=== PATIENT | female | born 1940 | race Caucasian/White ===

== ENCOUNTER 2017-09-11 19:28 | Inpatient (IN) | payer MEDICARE, OTHER ==
[2017-09-11 20:52] LABS: ADD MAN DIFF? NO
[2017-09-11] MEDS: SODIUM CHLORIDE 0.9% 1L BAG IV* (20:53)
[2017-09-11] MEDS: CEFEPIME 2GM/50 ML (PMX) 50 ML IVPB (20:54)
[2017-09-11] MEDS: ACETAMINOPHEN 650 MG SUPP PR (20:54)
[2017-09-11 20:55] LABS: BASOPHIL # 0.1 10^3/ul (0.0-0.1); BASOPHILS % 0.3 % (0.0-2.0); EOSINOPHILS # 0.1 10^3/ul (0.0-0.5); EOSINOPHILS % 0.4 % (0.0-7.0); HEMATOCRIT 39.8 % (37.0-47.0); HEMOGLOBIN 11.8 g/dl (12.0-16.0); LYMPHOCYTES # 1.5 10^3/ul (0.8-2.9); LYMPHOCYTES % 7.3 % (15.0-51.0); MEAN CORPUSCULAR HEMOGLOBIN 28.6 pg (29.0-33.0); MEAN CORPUSCULAR HGB CONC 29.6 g/dl (32.0-37.0); MEAN CORPUSCULAR VOLUME 96.6 fl (82.0-101.0); MEAN PLATELET VOLUME 8.8 fl (7.4-10.4); MONOCYTE # 0.9 10^3/ul (0.3-0.9); MONOCYTES % 4.4 % (0.0-11.0); NEUTROPHIL # 17.5 10^3/ul (1.6-7.5); NEUTROPHILS % 86.7 % (39.0-77.0); PLATELET COUNT 340 10^3/UL (140-415); RED BLOOD COUNT 4.12 10^6/ul (4.20-5.40); RED CELL DISTRIBUTION WIDTH 13.2 % (11.5-14.5)
[2017-09-11 20:55] LABS: WHITE BLOOD COUNT 20.2 10^3/ul (4.8-10.8)
[2017-09-11 21:08] LABS: ADD UMIC YES; UR ASCORBIC ACID 40 mg/dL (NEGATIVE); UR BACTERIA MODERATE /HPF (NONE SEEN); UR BILIRUBIN (Dip) NEGATIVE (NEGATIVE); UR BLOOD (Dip) NEGATIVE (NEGATIVE); UR CLARITY SLIGHTLY CLOUDY (CLEAR); UR COLOR YELLOW (YELLOW); UR GLUCOSE (Dip) NEGATIVE (NEGATIVE); UR KETONES (Dip) NEGATIVE (NEGATIVE); UR LEUKOCYTE ESTERASE (Dip) NEGATIVE Leu/ul (NEGATIVE); UR MUCUS FEW /HPF (NONE SEEN); UR NITRITE (Dip) NEGATIVE (NEGATIVE); UR RBC 8 /HPF (0-5); UR SPECIFIC GRAVITY (Dip) 1.021 (1.003-1.030); UR TOTAL PROTEIN (Dip) 1+ mg/dl (NEGATIVE); UR UROBILINOGEN (Dip) NEGATIVE (NEGATIVE); UR WBC 3 /HPF (0-5)
[2017-09-11 21:13] LABS: LACTIC ACID 0.9 mmol/L (0.5-2.0)
[2017-09-11 21:13] LABS: INR 0.95; PROTIME 12.8 Sec (11.9-14.9)
[2017-09-11 21:14] LABS: PARTIAL THROMBOPLASTIN TIME 27.5 Sec (25.0-35.0)
[2017-09-11 21:15] LABS: ALANINE AMINOTRANSFERASE 20 IU/L (13-69); ALBUMIN 3.9 g/dl (3.3-4.9); ALKALINE PHOSPHATASE 102 IU/L (42-121); ANION GAP 13 (8-16); ASPARTATE AMINO TRANSFERASE 20 IU/L (15-46); BLOOD UREA NITROGEN 14 mg/dl (7-20); CALCIUM 8.6 mg/dl (8.4-10.2); CARBON DIOXIDE 32 mmol/L (21-31); CHLORIDE 106 mmol/L (97-110); CREATININE 0.66 mg/dl (0.44-1.00); GLUCOSE 189 mg/dl (70-220); POTASSIUM 4.1 mmol/L (3.5-5.1); SODIUM 147 mmol/L (135-144); TOTAL PROTEIN 8.2 g/dl (6.1-8.1)
[2017-09-11] MEDS: VANCOMYCIN 1 GM (PMX) 250 ML IVPB (21:23)
[2017-09-11 21:34] LABS: TROPONIN-I < 0.012 ng/ml (0.000-0.120)
[2017-09-11] MEDS: NALOXONE 2 MG SYG IV (21:59)
[2017-09-11] MEDS ORDERED: ONDANSETRON 4 MG INJ IV (22:00)
[2017-09-11] MEDS ORDERED: ACETAMINOPHEN 325 MG TAB PO (22:00)
[2017-09-11 23:01] LABS: LACTIC ACID 1.3 mmol/L (0.5-2.0)
[2017-09-12] MEDS: ACETAMINOPHEN 650 MG SUPP PR ×2 (04:03→10:28)
[2017-09-12] MEDS: SOD CHLORIDE 0.9% 1,000 ML IV ×3 (04:15→18:51)
[2017-09-12] MEDS ORDERED: ONDANSETRON 4 MG INJ IV (05:30)
[2017-09-12] MEDS ORDERED: NACL 0.9% 3 ML SYG IV (05:30)
[2017-09-12] MEDS ORDERED: ALPRAZOLAM 0.25 MG TAB PO (05:30)
[2017-09-12] MEDS ORDERED: HYDROCODONE/APAP (5/325) TAB PO (05:30)
[2017-09-12] MEDS: OLOPATADINE 0.2% (ONCE A DAY) OPHTH DROP 2.5 ML BOTH EYES ×2 (05:30→08:06)
[2017-09-12] MEDS ORDERED: morphine 2 MG INJ IV (05:30)
[2017-09-12] MEDS: BACLOFEN 10 MG TAB PO ×2 (05:30→11:30)
[2017-09-12] MEDS: PANTOPRAZOLE (EC) 40 MG TAB PO ×2 (06:00→18:00)
[2017-09-12 06:22] LABS: ADD MAN DIFF? NO
[2017-09-12 06:23] LABS: WHITE BLOOD COUNT 24.1 10^3/ul (4.8-10.8)
[2017-09-12 06:23] LABS: ABNORMAL IP MESSAGE 1; BASOPHILS % 0.2 % (0.0-2.0); EOSINOPHILS % 0.1 % (0.0-7.0); HEMATOCRIT 36.4 % (37.0-47.0); HEMOGLOBIN 10.7 g/dl (12.0-16.0); LYMPHOCYTES # 1.4 10^3/ul (0.8-2.9); LYMPHOCYTES % 5.7 % (15.0-51.0); MEAN CORPUSCULAR HEMOGLOBIN 28.6 pg (29.0-33.0); MEAN CORPUSCULAR HGB CONC 29.4 g/dl (32.0-37.0); MEAN CORPUSCULAR VOLUME 97.3 fl (82.0-101.0); MEAN PLATELET VOLUME 8.9 fl (7.4-10.4); MONOCYTE # 0.9 10^3/ul (0.3-0.9); MONOCYTES % 3.7 % (0.0-11.0); NEUTROPHIL # 21.5 10^3/ul (1.6-7.5); NEUTROPHILS % 89.3 % (39.0-77.0); PLATELET COUNT 296 10^3/UL (140-415); RED BLOOD COUNT 3.74 10^6/ul (4.20-5.40); RED CELL DISTRIBUTION WIDTH 13.2 % (11.5-14.5)
[2017-09-12 06:29] LABS: POSITIVE DIFF @See below
[2017-09-12 06:52] LABS: LACTIC ACID 1.2 mmol/L (0.5-2.0)
[2017-09-12 07:00] LABS: ALANINE AMINOTRANSFERASE 19 IU/L (13-69); ALBUMIN 3.2 g/dl (3.3-4.9); ALBUMIN/GLOBULIN RATIO 0.94; ALKALINE PHOSPHATASE 88 IU/L (42-121); ANION GAP 9 (8-16); ASPARTATE AMINO TRANSFERASE 12 IU/L (15-46); BLOOD UREA NITROGEN 12 mg/dl (7-20); CALCIUM 8.2 mg/dl (8.4-10.2); CARBON DIOXIDE 31 mmol/L (21-31); CHLORIDE 111 mmol/L (97-110); GLUCOSE 155 mg/dl (70-220); SODIUM 147 mmol/L (135-144); TOTAL PROTEIN 6.6 g/dl (6.1-8.1)
[2017-09-12] MEDS: OCULAR LUBRICANT 3.5 GM OPH OINT BOTH EYES ×4 (08:00→23:00)
[2017-09-12] MEDS: ASPIRIN (EC) 81 MG TAB PO (08:29)
[2017-09-12] MEDS: SENNA TAB PO ×2 (08:30→21:00)
[2017-09-12] MEDS: PYRIDOXINE 50 MG TAB PO (08:30)
[2017-09-12] MEDS: GABAPENTIN 300 MG CAP PO ×2 (08:30→21:00)
[2017-09-12] MEDS: POLYETHYLENE GLYCOL 17 GM PACKET PO (08:30)
[2017-09-12] MEDS: AMLODIPINE 5 MG TAB PO (08:30)
[2017-09-12] MEDS: PRAMIPEXOLE 0.25 MG TAB PO ×2 (08:30→21:00)
[2017-09-12] MEDS ORDERED: NON-FORMULARY/PATIENT OWN MED (Naloxegol Oxalate (Movantik) 25 MG) PO (09:00)
[2017-09-12] MEDS: HEPARIN 5,000 UNIT/0.5 ML VIAL SC ×2 (10:02→21:19)
[2017-09-12] MEDS: MEROPENEM 500MG/50 ML (PMX) 50 ML IVPB ×2 (10:28→21:18)
[2017-09-12] MEDS: ALBUTEROL/IPRATROPIUM (NEB) 3 ML AMP HHN (14:31)
[2017-09-12 14:43] LABS: AADO2 Arterial 303.4 mmHg (7.0-24.0); Allen Test ACCEPTAB; Arterial Blood Gas Oxygen Sat 90.8 mmHG (95.0-100.0); Arterial COHb 0.4 % (0.0-3.0); Arterial Fraction of Oxyhgb 90.3 % (93.0-99.0); Arterial HCO3 27.6 mmol/L (22.0-26.0); Arterial MetHb 0.1 % (0.0-1.5); Arterial Total Hemglobin 11.9 g/dl (12.0-18.0); MODE MASK - SIMPLE; Site Right Radial
[2017-09-12] MEDS: [UNRECOGNIZED DRUG - OTHER] XX (16:00)
[2017-09-12] MEDS: OLOPATADINE 0.1% 5 ML OPH BOTH EYES ×2 (18:51→21:18)
[2017-09-12 20:03] LABS: AADO2 Arterial 177.3 mmHg (7.0-24.0); Arterial Base Excess 0.1 mmol/L (-3.0-3); Arterial Blood Gas Oxygen Sat 94.3 mmHG (95.0-100.0); Arterial COHb 0.5 % (0.0-3.0); Arterial Fraction of Oxyhgb 93.7 % (93.0-99.0); Arterial HCO3 28.3 mmol/L (22.0-26.0); Arterial MetHb 0.1 % (0.0-1.5); Arterial pCO2 63.9 mmhg (35-45); Blood Gas IEPAP 18 /8; MODE BCPAP; Site Right Brachial
[2017-09-12] MEDS ORDERED: NON-FORMULARY/PATIENT OWN MED (Melatonin 10 MG) PO (21:00)
[2017-09-12] MEDS: traZODone 50 MG TAB PO (21:00)
[2017-09-13] MEDS: PANTOPRAZOLE (EC) 40 MG TAB PO ×2 (05:57→17:43)
[2017-09-13] MEDS: [UNRECOGNIZED DRUG - OTHER] XX ×3 (08:00→16:00)
[2017-09-13] MEDS: OCULAR LUBRICANT 3.5 GM OPH OINT BOTH EYES ×6 (08:00→20:37)
[2017-09-13 09:10] LABS: WHITE BLOOD COUNT 33.8 10^3/ul (4.8-10.8)
[2017-09-13 09:10] LABS: ABNORMAL IP MESSAGE 1; HEMATOCRIT 32.6 % (37.0-47.0); HEMOGLOBIN 9.8 g/dl (12.0-16.0); MEAN CORPUSCULAR HEMOGLOBIN 28.7 pg (29.0-33.0); MEAN CORPUSCULAR HGB CONC 30.1 g/dl (32.0-37.0); MEAN CORPUSCULAR VOLUME 95.6 fl (82.0-101.0); MEAN PLATELET VOLUME 9.5 fl (7.4-10.4); PLATELET COUNT 280 10^3/UL (140-415); RED BLOOD COUNT 3.41 10^6/ul (4.20-5.40); RED CELL DISTRIBUTION WIDTH 13.6 % (11.5-14.5)
[2017-09-13 09:15] LABS: POSITIVE DIFF @See below
[2017-09-13 09:16] LABS: ADD MAN DIFF? YES
[2017-09-13] MEDS: POLYETHYLENE GLYCOL 17 GM PACKET PO (09:23)
[2017-09-13 09:24] LABS: PHOSPHORUS 1.9 mg/dl (2.5-4.9)
[2017-09-13] MEDS: PYRIDOXINE 50 MG TAB PO (09:25)
[2017-09-13] MEDS: AMLODIPINE 5 MG TAB PO (09:25)
[2017-09-13] MEDS: PRAMIPEXOLE 0.25 MG TAB PO ×2 (09:25→20:38)
[2017-09-13] MEDS: ASPIRIN (EC) 81 MG TAB PO (09:25)
[2017-09-13] MEDS: GABAPENTIN 300 MG CAP PO ×2 (09:26→20:38)
[2017-09-13] MEDS: SENNA TAB PO ×2 (09:26→20:37)
[2017-09-13] MEDS: HEPARIN 5,000 UNIT/0.5 ML VIAL SC ×2 (09:27→20:41)
[2017-09-13] MEDS: OLOPATADINE 0.1% 5 ML OPH BOTH EYES ×2 (09:27→20:42)
[2017-09-13 09:28] LABS: ALANINE AMINOTRANSFERASE 16 IU/L (13-69); ALBUMIN 2.8 g/dl (3.3-4.9); ALBUMIN/GLOBULIN RATIO 0.82; ALKALINE PHOSPHATASE 109 IU/L (42-121); ANION GAP 11 (8-16); ASPARTATE AMINO TRANSFERASE 19 IU/L (15-46); BILIRUBIN,INDIRECT 0.1 mg/dl (0-1.1); BILIRUBIN,TOTAL 0.1 mg/dl (0.2-1.3); BLOOD UREA NITROGEN 16 mg/dl (7-20); CALCIUM 8.8 mg/dl (8.4-10.2); CARBON DIOXIDE 29 mmol/L (21-31); CHLORIDE 113 mmol/L (97-110); CREATININE 0.65 mg/dl (0.44-1.00); GLUCOSE 124 mg/dl (70-220); MAGNESIUM 1.9 mg/dl (1.7-2.5); POTASSIUM 3.6 mmol/L (3.5-5.1); SODIUM 149 mmol/L (135-144); TOTAL PROTEIN 6.2 g/dl (6.1-8.1)
[2017-09-13] MEDS: MEROPENEM 500MG/50 ML (PMX) 50 ML IVPB ×2 (09:31→20:36)
[2017-09-13] MEDS: SOD CHLORIDE 0.9% 1,000 ML IV ×2 (09:31→21:23)
[2017-09-13 09:56] LABS: ANISOCYTOSIS 1+ (0-0); BAND NEUTROPHILS #M 9.1 10^3/ul (0.0-0.6); BAND NEUTROPHILS % (M) 27 % (0-4); LYMPHOCYTES #M 1.6 10^3/ul (0.8-2.9); LYMPHOCYTES % (M) 5 % (15-51); MICROCYTOSIS 1+ (0-0); MONOCYTE #M 0.3 10^3/ul (0.3-0.9); MONOCYTES % (M) 1 % (0-11); PLATELET ESTIMATE NORMAL; POLYCHROMASIA 3+ (0-0); SEG NEUT #M 25.7 10^3/ul (1.6-7.5); SEGMENTED NEUTROPHILS (M) % 67 % (39-77)
[2017-09-13] MEDS ORDERED: VANCOMYCIN IV PER PHARMACY XX (14:00)
[2017-09-13] MEDS: IOHEXOL 100 ML (16:03)
[2017-09-13] MEDS: SOD CHLORIDE 0.9% 100 ML (16:03)
[2017-09-13] MEDS: VANCOMYCIN 1.5 GM in SOD CHLORIDE 0.9% 250 ML IVPB (16:28)
[2017-09-13] MEDS: ATORVASTATIN 10 MG TAB PO (20:38)
[2017-09-13] MEDS: traZODone 50 MG TAB PO (20:38)
[2017-09-14] MEDS: OCULAR LUBRICANT 3.5 GM OPH OINT BOTH EYES ×6 (01:35→21:12)
[2017-09-14] MEDS: SOD CHLORIDE 0.9% 1,000 ML IV ×2 (06:01→10:43)
[2017-09-14] MEDS: PANTOPRAZOLE (EC) 40 MG TAB PO ×2 (06:01→17:52)
[2017-09-14] MEDS: [UNRECOGNIZED DRUG - OTHER] XX ×3 (08:00→16:00)
[2017-09-14] MEDS: GABAPENTIN 300 MG CAP PO ×2 (08:34→21:11)
[2017-09-14] MEDS: PRAMIPEXOLE 0.25 MG TAB PO ×2 (08:34→21:11)
[2017-09-14] MEDS: ASPIRIN (EC) 81 MG TAB PO (08:34)
[2017-09-14] MEDS: POLYETHYLENE GLYCOL 17 GM PACKET PO (08:34)
[2017-09-14] MEDS: AMLODIPINE 5 MG TAB PO (08:34)
[2017-09-14] MEDS: SENNA TAB PO ×2 (08:35→21:11)
[2017-09-14] MEDS: PYRIDOXINE 50 MG TAB PO (08:35)
[2017-09-14 08:40] LABS: ADD MAN DIFF? NO
[2017-09-14 08:42] LABS: ABNORMAL IP MESSAGE 1; BASOPHIL # 0.1 10^3/ul (0.0-0.1); BASOPHILS % 0.2 % (0.0-2.0); EOSINOPHILS # 0.2 10^3/ul (0.0-0.5); EOSINOPHILS % 0.8 % (0.0-7.0); HEMATOCRIT 31.5 % (37.0-47.0); HEMOGLOBIN 9.9 g/dl (12.0-16.0); LYMPHOCYTES # 2.1 10^3/ul (0.8-2.9); LYMPHOCYTES % 7.9 % (15.0-51.0); MEAN CORPUSCULAR HEMOGLOBIN 29.1 pg (29.0-33.0); MEAN CORPUSCULAR HGB CONC 31.4 g/dl (32.0-37.0); MEAN CORPUSCULAR VOLUME 92.6 fl (82.0-101.0); MEAN PLATELET VOLUME 9.1 fl (7.4-10.4); MONOCYTE # 0.6 10^3/ul (0.3-0.9); NEUTROPHIL # 23.6 10^3/ul (1.6-7.5); NUCLEATED RED BLOOD CELLS% 0.1 /100WBC (0.0-0.0); PLATELET COUNT 298 10^3/UL (140-415); RED CELL DISTRIBUTION WIDTH 13.2 % (11.5-14.5)
[2017-09-14 08:42] LABS: WHITE BLOOD COUNT 26.9 10^3/ul (4.8-10.8)
[2017-09-14] MEDS: OLOPATADINE 0.1% 5 ML OPH BOTH EYES ×2 (08:45→21:31)
[2017-09-14 08:47] LABS: POSITIVE DIFF @See below
[2017-09-14] MEDS: MEROPENEM 500MG/50 ML (PMX) 50 ML IVPB (08:55)
[2017-09-14] MEDS: HEPARIN 5,000 UNIT/0.5 ML VIAL SC ×2 (08:55→21:21)
[2017-09-14 09:08] LABS: ANION GAP 12 (8-16); BLOOD UREA NITROGEN 11 mg/dl (7-20); CALCIUM 8.4 mg/dl (8.4-10.2); CARBON DIOXIDE 28 mmol/L (21-31); CHLORIDE 109 mmol/L (97-110); CREATININE 0.49 mg/dl (0.44-1.00); GLUCOSE 112 mg/dl (70-220); POTASSIUM 3.2 mmol/L (3.5-5.1); SODIUM 146 mmol/L (135-144)
[2017-09-14] MEDS: PIPER-TAZO 3.375 GM IV (PMX) 100 ML IVPB ×2 (15:58→21:35)
[2017-09-14] MEDS: POTASSIUM CHLORIDE (SR) 20 MEQ TAB PO (16:04)
[2017-09-14] MEDS: VANCOMYCIN 1.25 GM in SOD CHLORIDE 0.9% 250 ML IVPB (17:35)
[2017-09-14] MEDS: ACETAMINOPHEN 325 MG TAB PO (19:59)
[2017-09-14] MEDS: traZODone 50 MG TAB PO (21:11)
[2017-09-14] MEDS: ATORVASTATIN 10 MG TAB PO (21:11)
[2017-09-14] MEDS: POTASSIUM CHLORIDE 100 ML IVPB (23:06)
[2017-09-15] MEDS: SOD CHLORIDE 0.9% 1,000 ML IV ×2 (00:03→13:23)
[2017-09-15] MEDS: OCULAR LUBRICANT 3.5 GM OPH OINT BOTH EYES ×6 (01:50→21:27)
[2017-09-15] MEDS: PANTOPRAZOLE (EC) 40 MG TAB PO ×2 (05:48→17:43)
[2017-09-15] MEDS: PIPER-TAZO 3.375 GM IV (PMX) 100 ML IVPB ×3 (05:48→21:19)
[2017-09-15] MEDS: [UNRECOGNIZED DRUG - OTHER] XX ×3 (07:54→15:43)
[2017-09-15] MEDS: AMLODIPINE 5 MG TAB PO (08:58)
[2017-09-15] MEDS: SENNA TAB PO ×2 (08:58→21:14)
[2017-09-15] MEDS: ASPIRIN (EC) 81 MG TAB PO (08:59)
[2017-09-15] MEDS: PYRIDOXINE 50 MG TAB PO (08:59)
[2017-09-15] MEDS: PRAMIPEXOLE 0.25 MG TAB PO ×2 (08:59→21:14)
[2017-09-15] MEDS: GABAPENTIN 300 MG CAP PO ×2 (09:00→21:14)
[2017-09-15] MEDS: OLOPATADINE 0.1% 5 ML OPH BOTH EYES ×2 (09:01→21:00)
[2017-09-15] MEDS: POLYETHYLENE GLYCOL 17 GM PACKET PO (09:01)
[2017-09-15] MEDS: HEPARIN 5,000 UNIT/0.5 ML VIAL SC ×2 (09:16→21:15)
[2017-09-15 09:29] LABS: ADD MAN DIFF? NO
[2017-09-15 09:33] LABS: WHITE BLOOD COUNT 14.4 10^3/ul (4.8-10.8)
[2017-09-15 09:33] LABS: BASOPHILS % 0.3 % (0.0-2.0); EOSINOPHILS # 0.3 10^3/ul (0.0-0.5); EOSINOPHILS % 1.8 % (0.0-7.0); HEMATOCRIT 33.3 % (37.0-47.0); HEMOGLOBIN 10.3 g/dl (12.0-16.0); LYMPHOCYTES # 1.8 10^3/ul (0.8-2.9); LYMPHOCYTES % 12.3 % (15.0-51.0); MEAN CORPUSCULAR HEMOGLOBIN 28.3 pg (29.0-33.0); MEAN CORPUSCULAR HGB CONC 30.9 g/dl (32.0-37.0); MEAN CORPUSCULAR VOLUME 91.5 fl (82.0-101.0); MEAN PLATELET VOLUME 9.1 fl (7.4-10.4); MONOCYTE # 0.4 10^3/ul (0.3-0.9); MONOCYTES % 2.5 % (0.0-11.0); NEUTROPHIL # 11.9 10^3/ul (1.6-7.5); NEUTROPHILS % 82.5 % (39.0-77.0); PLATELET COUNT 317 10^3/UL (140-415); RED BLOOD COUNT 3.64 10^6/ul (4.20-5.40); RED CELL DISTRIBUTION WIDTH 13.1 % (11.5-14.5)
[2017-09-15 09:56] LABS: ANION GAP 13 (8-16); BLOOD UREA NITROGEN 11 mg/dl (7-20); CALCIUM 8.5 mg/dl (8.4-10.2); CARBON DIOXIDE 31 mmol/L (21-31); CHLORIDE 107 mmol/L (97-110); CREATININE 0.57 mg/dl (0.44-1.00); GLUCOSE 105 mg/dl (70-220); POTASSIUM 3.5 mmol/L (3.5-5.1); SODIUM 147 mmol/L (135-144)
[2017-09-15] MEDS: ACETAMINOPHEN 325 MG TAB PO (11:35)
[2017-09-15] MEDS: VANCOMYCIN 1.25 GM in SOD CHLORIDE 0.9% 250 ML IVPB (15:43)
[2017-09-15] MEDS: ATORVASTATIN 10 MG TAB PO (21:14)
[2017-09-15] MEDS: traZODone 50 MG TAB PO (21:14)
[2017-09-16] MEDS: OCULAR LUBRICANT 3.5 GM OPH OINT BOTH EYES ×6 (01:30→21:30)
[2017-09-16] MEDS: SOD CHLORIDE 0.9% 1,000 ML IV (03:02)
[2017-09-16] MEDS: PIPER-TAZO 3.375 GM IV (PMX) 100 ML IVPB ×3 (06:24→21:29)
[2017-09-16] MEDS: PANTOPRAZOLE (EC) 40 MG TAB PO (06:24)
[2017-09-16] MEDS: [UNRECOGNIZED DRUG - OTHER] XX ×3 (08:00→15:11)
[2017-09-16] MEDS: HEPARIN 5,000 UNIT/0.5 ML VIAL SC ×2 (08:28→21:27)
[2017-09-16] MEDS: OLOPATADINE 0.1% 5 ML OPH BOTH EYES ×2 (08:29→21:30)
[2017-09-16] MEDS: POLYETHYLENE GLYCOL 17 GM PACKET PO (08:31)
[2017-09-16] MEDS: SENNA TAB PO ×2 (08:32→21:19)
[2017-09-16] MEDS: GABAPENTIN 300 MG CAP PO ×2 (08:33→21:18)
[2017-09-16] MEDS: ASPIRIN (EC) 81 MG TAB PO (08:33)
[2017-09-16] MEDS: PYRIDOXINE 50 MG TAB PO (08:33)
[2017-09-16] MEDS: AMLODIPINE 5 MG TAB PO (08:34)
[2017-09-16] MEDS: PRAMIPEXOLE 0.25 MG TAB PO ×2 (08:34→21:29)
[2017-09-16 08:43] LABS: ADD MAN DIFF? NO
[2017-09-16 08:49] LABS: BASOPHILS % 0.3 % (0.0-2.0); EOSINOPHILS # 0.3 10^3/ul (0.0-0.5); EOSINOPHILS % 2.6 % (0.0-7.0); HEMATOCRIT 32.6 % (37.0-47.0); HEMOGLOBIN 10.2 g/dl (12.0-16.0); LYMPHOCYTES # 1.8 10^3/ul (0.8-2.9); LYMPHOCYTES % 17.1 % (15.0-51.0); MEAN CORPUSCULAR HEMOGLOBIN 28.7 pg (29.0-33.0); MEAN CORPUSCULAR HGB CONC 31.3 g/dl (32.0-37.0); MEAN CORPUSCULAR VOLUME 91.8 fl (82.0-101.0); MONOCYTE # 0.4 10^3/ul (0.3-0.9); MONOCYTES % 3.8 % (0.0-11.0); NEUTROPHIL # 8.1 10^3/ul (1.6-7.5); NEUTROPHILS % 75.5 % (39.0-77.0); PLATELET COUNT 355 10^3/UL (140-415); RED BLOOD COUNT 3.55 10^6/ul (4.20-5.40)
[2017-09-16 08:49] LABS: WHITE BLOOD COUNT 10.7 10^3/ul (4.8-10.8)
[2017-09-16 09:10] LABS: ANION GAP 10 (8-16); BLOOD UREA NITROGEN 10 mg/dl (7-20); CALCIUM 8.6 mg/dl (8.4-10.2); CARBON DIOXIDE 31 mmol/L (21-31); CHLORIDE 109 mmol/L (97-110); CREATININE 0.53 mg/dl (0.44-1.00); GLUCOSE 115 mg/dl (70-220); POTASSIUM 3.4 mmol/L (3.5-5.1); SODIUM 147 mmol/L (135-144)
[2017-09-16] MEDS: LACTOBACILLUS RHAMNOSUS CAP PO ×2 (13:22→21:18)
[2017-09-16] MEDS: BACITRACIN/POLYMYXIN 0.9 GM OINT TOP ×2 (16:00→23:00)
[2017-09-16 16:14] LABS: VANCOMYCIN,TROUGH 9.2 ug/ml (10.0-20.0)
[2017-09-16] MEDS: VANCOMYCIN 1.25 GM in SOD CHLORIDE 0.9% 250 ML IVPB (16:25)
[2017-09-16] MEDS: ATORVASTATIN 10 MG TAB PO (21:18)
[2017-09-17] MEDS: ACETAMINOPHEN 325 MG TAB PO ×2 (00:24→14:18)
[2017-09-17] MEDS: OCULAR LUBRICANT 3.5 GM OPH OINT BOTH EYES ×6 (01:30→21:04)
[2017-09-17] MEDS: PIPER-TAZO 3.375 GM IV (PMX) 100 ML IVPB ×3 (06:05→21:04)
[2017-09-17] MEDS: PANTOPRAZOLE (EC) 40 MG TAB PO (06:06)
[2017-09-17] MEDS: [UNRECOGNIZED DRUG - OTHER] XX ×3 (07:28→15:15)
[2017-09-17] MEDS: POLYETHYLENE GLYCOL 17 GM PACKET PO (08:47)
[2017-09-17] MEDS: PRAMIPEXOLE 0.25 MG TAB PO ×2 (08:47→21:04)
[2017-09-17] MEDS: GABAPENTIN 300 MG CAP PO ×2 (08:48→21:04)
[2017-09-17] MEDS: SENNA TAB PO ×2 (08:48→21:04)
[2017-09-17] MEDS: ASPIRIN (EC) 81 MG TAB PO (08:48)
[2017-09-17] MEDS: AMLODIPINE 5 MG TAB PO (08:48)
[2017-09-17] MEDS: PYRIDOXINE 50 MG TAB PO (08:48)
[2017-09-17] MEDS: LACTOBACILLUS RHAMNOSUS CAP PO ×2 (08:49→21:04)
[2017-09-17] MEDS: HEPARIN 5,000 UNIT/0.5 ML VIAL SC ×2 (08:51→21:09)
[2017-09-17] MEDS: OLOPATADINE 0.1% 5 ML OPH BOTH EYES ×2 (08:56→21:04)
[2017-09-17] MEDS: BACITRACIN/POLYMYXIN 0.9 GM OINT TOP (09:00)
[2017-09-17] MEDS ORDERED: BACITRACIN 0.5%/ZINC 28.35 GM OINT TOP (09:30)
[2017-09-17] MEDS: VANCOMYCIN 1.5 GM in SOD CHLORIDE 0.9% 250 ML IVPB (16:05)
[2017-09-17] MEDS: BACITRACIN/POLYMYXIN 28.35 GM OINT TOP (21:00)
[2017-09-17] MEDS: ATORVASTATIN 10 MG TAB PO (21:05)
[2017-09-18] MEDS: ACETAMINOPHEN 325 MG TAB PO ×3 (00:39→21:50)
[2017-09-18] MEDS: OCULAR LUBRICANT 3.5 GM OPH OINT BOTH EYES ×6 (01:30→21:30)
[2017-09-18] MEDS: PIPER-TAZO 3.375 GM IV (PMX) 100 ML IVPB ×3 (05:37→21:50)
[2017-09-18] MEDS: PANTOPRAZOLE (EC) 40 MG TAB PO (05:37)
[2017-09-18] MEDS: [UNRECOGNIZED DRUG - OTHER] XX ×3 (08:00→15:44)
[2017-09-18] MEDS: AMLODIPINE 5 MG TAB PO (08:39)
[2017-09-18] MEDS: PRAMIPEXOLE 0.25 MG TAB PO ×2 (08:39→21:50)
[2017-09-18] MEDS: LACTOBACILLUS RHAMNOSUS CAP PO ×2 (08:39→21:50)
[2017-09-18] MEDS: SENNA TAB PO ×2 (08:39→21:00)
[2017-09-18] MEDS: PYRIDOXINE 50 MG TAB PO (08:39)
[2017-09-18] MEDS: GABAPENTIN 300 MG CAP PO ×2 (08:39→21:50)
[2017-09-18] MEDS: POLYETHYLENE GLYCOL 17 GM PACKET PO (08:39)
[2017-09-18] MEDS: BACITRACIN/POLYMYXIN 28.35 GM OINT TOP ×2 (08:39→21:00)
[2017-09-18] MEDS: ASPIRIN (EC) 81 MG TAB PO (08:39)
[2017-09-18] MEDS: HEPARIN 5,000 UNIT/0.5 ML VIAL SC ×2 (08:40→21:52)
[2017-09-18] MEDS: OLOPATADINE 0.1% 5 ML OPH BOTH EYES ×2 (08:44→21:00)
[2017-09-18] MEDS: VANCOMYCIN 1.5 GM in SOD CHLORIDE 0.9% 250 ML IVPB (18:30)
[2017-09-18] MEDS: ATORVASTATIN 10 MG TAB PO (21:50)
[2017-09-19] MEDS: OCULAR LUBRICANT 3.5 GM OPH OINT BOTH EYES ×5 (01:30→16:53)
[2017-09-19] MEDS: PANTOPRAZOLE (EC) 40 MG TAB PO (05:55)
[2017-09-19] MEDS: PIPER-TAZO 3.375 GM IV (PMX) 100 ML IVPB ×2 (05:55→13:37)
[2017-09-19 07:50] LABS: ADD MAN DIFF? NO
[2017-09-19 07:55] LABS: WHITE BLOOD COUNT 11.3 10^3/ul (4.8-10.8)
[2017-09-19 07:55] LABS: BASOPHILS % 0.3 % (0.0-2.0); EOSINOPHILS # 0.6 10^3/ul (0.0-0.5); HEMATOCRIT 33.6 % (37.0-47.0); HEMOGLOBIN 10.3 g/dl (12.0-16.0); LYMPHOCYTES # 2.2 10^3/ul (0.8-2.9); LYMPHOCYTES % 19.5 % (15.0-51.0); MEAN CORPUSCULAR HEMOGLOBIN 28.5 pg (29.0-33.0); MEAN CORPUSCULAR HGB CONC 30.7 g/dl (32.0-37.0); MEAN CORPUSCULAR VOLUME 93.1 fl (82.0-101.0); MEAN PLATELET VOLUME 8.9 fl (7.4-10.4); MONOCYTE # 0.5 10^3/ul (0.3-0.9); MONOCYTES % 4.1 % (0.0-11.0); NEUTROPHIL # 7.9 10^3/ul (1.6-7.5); NEUTROPHILS % 70.1 % (39.0-77.0); PLATELET COUNT 423 10^3/UL (140-415); RED BLOOD COUNT 3.61 10^6/ul (4.20-5.40); RED CELL DISTRIBUTION WIDTH 13.1 % (11.5-14.5)
[2017-09-19 08:22] LABS: MAGNESIUM 1.9 mg/dl (1.7-2.5)
[2017-09-19 08:22] LABS: PHOSPHORUS 4.3 mg/dl (2.5-4.9)
[2017-09-19 08:26] LABS: ANION GAP 12 (8-16); CALCIUM 8.8 mg/dl (8.4-10.2); CARBON DIOXIDE 33 mmol/L (21-31); CHLORIDE 105 mmol/L (97-110); CREATININE 0.49 mg/dl (0.44-1.00); GLUCOSE 108 mg/dl (70-220); POTASSIUM 3.2 mmol/L (3.5-5.1); SODIUM 147 mmol/L (135-144)
[2017-09-19] MEDS: OLOPATADINE 0.1% 5 ML OPH BOTH EYES (08:47)
[2017-09-19] MEDS: BACITRACIN/POLYMYXIN 28.35 GM OINT TOP (08:48)
[2017-09-19] MEDS: AMLODIPINE 5 MG TAB PO (08:48)
[2017-09-19] MEDS: PYRIDOXINE 50 MG TAB PO (08:48)
[2017-09-19] MEDS: SENNA TAB PO (08:48)
[2017-09-19] MEDS: ASPIRIN (EC) 81 MG TAB PO (08:48)
[2017-09-19] MEDS: PRAMIPEXOLE 0.25 MG TAB PO (08:48)
[2017-09-19] MEDS: POLYETHYLENE GLYCOL 17 GM PACKET PO (08:48)
[2017-09-19] MEDS: GABAPENTIN 300 MG CAP PO (08:48)
[2017-09-19] MEDS: LACTOBACILLUS RHAMNOSUS CAP PO (08:48)
[2017-09-19] MEDS: HEPARIN 5,000 UNIT/0.5 ML VIAL SC (08:49)
[2017-09-19] MEDS ORDERED: ENOXAPARIN 40 MG/0.4 ML SYG SC (09:00)
[2017-09-19 10:15] LABS: BLOOD UREA NITROGEN 10 mg/dl (7-20)
[2017-09-19] MEDS: POTASSIUM CHLORIDE 20 MEQ POWDER FOR ORAL SOLN PO (14:00)
[2017-09-19] MEDS: LEVOFLOXACIN 500 MG TAB PO (15:20)
[2017-09-20] MEDS ORDERED: LEVOFLOXACIN 250 MG TAB PO (06:00)
== END 2017-09-19 18:53 | DRG 871 ==
LOC: E/R 19:28 → PP2 21:43 → MS4 09-12 16:15
PROC: 5A09357 Assistance with Respiratory Ventilation, Less than 24 Consecutive Hours, Continuous Positive Airway Pressure (ICD-10-PCS; principal; 2017-09-12)
DX: A41.9 Sepsis, unspecified organism (principal); J18.9 Pneumonia, unspecified organism; G93.41 Metabolic encephalopathy; J96.92 Respiratory failure, unspecified with hypercapnia; J96.21 Acute and chronic respiratory failure with hypoxia; J96.22 Acute and chronic respiratory failure with hypercapnia; N39.0 Urinary tract infection, site not specified; E66.01 Morbid (severe) obesity due to excess calories; Z68.34 Body mass index [BMI] 34.0-34.9, adult; I10 Essential (primary) hypertension; R65.20 Severe sepsis without septic shock; F03.90 Unspecified dementia, unspecified severity, without behavioral disturbance, psychotic disturbance, mood disturbance, and anxiety; B96.89 Other specified bacterial agents as the cause of diseases classified elsewhere; Z16.12 Extended spectrum beta lactamase (ESBL) resistance; G47.33 Obstructive sleep apnea (adult) (pediatric); I69.964 Other paralytic syndrome following unspecified cerebrovascular disease affecting left non-dominant side; R13.10 Dysphagia, unspecified; M13.0 Polyarthritis, unspecified; Z74.01 Bed confinement status; Z66 Do not resuscitate
CPT/HCPCS: 36415; 36600; 70450; 71045; 71275; 80048; 80053; 80202; 81001; 82803; 83605; 83735; 84100; 84484; 85025; 85610; 85730; 87040; 87070; 87086; 92610; 93005; 93970; 94640; 94660; 96372; 96374; 96375; 99285-25

== ENCOUNTER → 2018-01-02 | Outpatient (CLI) | payer MEDICARE, OTHER | END | disposition home or self-care (01) | LOC: EKG 12:35 | DX: I10 Essential (primary) hypertension (principal) | CPT/HCPCS: 93306 ==